=== PATIENT | male | born 1960 | race Caucasian/White ===

== ENCOUNTER → 2017-10-05 | Outpatient (CLI) | payer BC ==
[~2017-10-05] MED LIST: ADULT LOW DOSE81 M1 PO; LIPITOR80 MG PO; LOZOL1.25 MG PO; NON-ASPIRIN PA500 M1 PO; TOPROL XL100 MG PO; ZESTRIL2.5 MG PO
== END | disposition home or self-care (01) ==
LOC: CDC 08:30
DX: Z01.810 Encounter for preprocedural cardiovascular examination (principal); K42.9 Umbilical hernia without obstruction or gangrene; R94.31 Abnormal electrocardiogram [ECG] [EKG]
CPT/HCPCS: 93000

== ENCOUNTER 2017-10-11 06:21 | Day surgery (SDC) | payer BC ==
[~2017-10-11] VITALS: Ht 170.2 cm; Wt 109.1 kg
[2017-10-11 06:54] VITALS: BP 126/80
[2017-10-11] MEDS ORDERED: NORCO 5/3251 TABLET PO (09:53)
[2017-10-11 11:25] VITALS: BP 111/78
[2017-10-11 12:25] VITALS: BP 100/68
[2017-10-11 13:05] VITALS: BP 110/65
== END 2017-10-11 13:30 | disposition home or self-care (01) ==
LOC: SDC
PROC: 0WUF4JZ Supplement Abdominal Wall with Synthetic Substitute, Percutaneous Endoscopic Approach (ICD-10-PCS; principal; 2017-10-11)
DX: K42.0 Umbilical hernia with obstruction, without gangrene (principal); I10 Essential (primary) hypertension; Z79.82 Long term (current) use of aspirin
CPT/HCPCS: C1781; J0131; J0330; J0690; J1100; J1170; J2250; J2405; J2710; J3010; J7643